=== PATIENT | male | born 1940 | race Caucasian/White ===

== ENCOUNTER 2024-12-26 13:39 | Inpatient (IN) ==
[2024-12-26 14:14] LABS: Hematocrit (blood only) 38.8 % (42.0-52.0); Hemoglobin 12.9 g/dl (14.0-18.0); Immature Granulocytes # (auto) 0.13 K/uL (0.01-0.20); Immature Granulocytes % (auto) 0.7 %; Mean Corpuscular Hemoglobin 33.2 pg (25.0-34.0); Mean Corpuscular Volume 100.0 fL (80.0-100.0); Platelet Count 396 K/uL (130-400); RDW Standard Deviation 50.7 fL (36.4-46.3); Red Blood Count 3.88 M/uL (4.70-6.10); White Blood Count 18.73 K/ul (4.8-10.8)
[2024-12-26 14:30] LABS: Alanine Aminotransferase 25.0 U/L (7-52); Albumin Globulin Ratio 0.9 (0.9-2); Alkaline Phosphatase 72.0 U/L (34-104); Anion Gap 7.0 (3-11); Bilirubin,Total 0.7 mg/dl (0.2-1.0); Blood Urea Nitrogen 13.0 mg/dl (6-23); Calcium 8.8 mg/dl (8.6-10.3); Carbon Dioxide 29.0 mmol/L (21-32); Chloride 101.0 mmol/L (98-107); Creatinine Clr Calc Pharmacy 80.1 ml/min; Globulin 3.6 gm/dl (2.5-4.0); Glucose 123.0 mg/dl (70-99(Fasting)); Magnesium 1.7 mg/dl (1.7-2.4); Potassium 3.9 mmol/L (3.5-5.1); Sodium 137.0 mmol/L (136-145); Total Protein 6.7 gm/dl (6.0-8.3)
--- NOTE | 2024-12-26 14:32 | XRay Report ---
XR chest 1V portable CLINICAL HISTORY: Dyspnea COMPARISON STUDY: 12/21/2024 FINDINGS: Stable cardiomegaly without pulmonary vascular congestion. There are mildly progressive ret icular and patchy peripheral pulmonary opacities, right lung greater than left. No pleural effusion o r pneumothorax. IMPRESSION: Mildly progressive pulmonary opacities likely represents mild acute pneumonia superimpos ed on chronic lung disease. ACT 112: Negative or not required by law. Electronically signed by: Anil Zhao M.D. 12/26/2024 2:31 PM
--- NOTE | 2024-12-26 14:48 | Emergency Department Note ---
Impression & Plan Pneumonia, Hypoxia, On apixaban therapy ED Provider Note NAME: ATILIO MENDOZA AGE: 84 SEX: M : 1940 ARRIVES VIA: Walk-In INFORMANT: Patient ED PROVIDER(S): Colten Valentino MD CHIEF COMPLAINT: Pneumonia, referred. PLAN: Disposition: Home MEDICAL DECISION MAKING: The patient is a pleasant 84-year-old gentleman with a past medical history of CHF, atrial fibrillation on Eliquis who presents to the emergency department via walk-in, accompanied by family and referred by his PCP office for persistent symptoms of shortness of breath in the setting of being diagnosed with pneumonia at urgent care and treated with Augmentin and doxycycline for the past 5 days. Patient denies fevers or chills. Denies nausea or vomiting. He reports some loose stool but this correlates with starting antibiotics. Symptoms began several weeks ago. Patient denies any chest pain, abdominal pain. On evaluation patient is no acute distress, afebrile with O2 saturation 89% on room air improving to low-mid 90s on nasal cannula. He appears clinically dry. He has scant rhonchi of bilateral lung elmore with normal respiratory effort. EKG without overt acute ischemia. CXR demonstrates vascular congestion with mildly progressed reticular and patchy peripheral pulmonary opacities suspicious for pneumonia per my personal preliminary review/interpretation. WBC 18.7 K with neutrophilia but no left shift. H/H12.9/38.8 without recent for comparison. Platelets within limits. Chemistry without metabolic acidosis. Electrolytes and Lifteez unremarkable. Lactic acid 0.9, within normal limits. High-sensitivity troponin 60.6, within normal limits. Procalcitonin is not elevated. UA without evidence of infection. Given failed outpatient management antibiotic coverage broadened with IV Zosyn at this time. MRSA swab was Obtained. Given the patient's persistent symptoms he does agree with plan for admission for further management. Case was [facility], with Dr. Villarreal [facility] hospitalist who will evaluate the patient for admission. Triage Nursing notes reviewed and agree them. Prior/external medical records reviewed Vital Signs: reviewed Differential diagnosis: Reactive airway disease, pneumonia, pneumothorax, COPD, CHF, infections, cardiac ischemia, pulmonary embolism, musculoskeletal, gastrointestinal, as well as other pathologies. ER treatment provided: See below. Diagnostics interpreted by me: ECG: Normal sinus rhythm with sinus arrhythmia, 75 bpm, no ectopy, no overt ST ovation or depression, QTc 460, QRS 144. Cardiac Monitoring: An order for continuous cardiac monitoring was placed and demonstrated normal sinus rhythm, 75 bpm, no ectopy. Laboratory studies: See below Imaging studies: See below Consultation(s): Case was discussed with NISHI Johnson PAC, with NISHI Gonzales hospitalist who will evaluate the patient for admission. HPI: Per MDM. ROS: See above HPI for pertinent positives & negatives. A total of 10 systems reviewed and were otherwise negative. VITALS:See Below PHYSICAL EXAMINATION: GENERAL: Awake, alert, fatigued-appearing, in no distress HENT: Normocephalic, atraumatic. Oropharynx with dry mucous membranes and otherwise unremarkable. EYES: Normal conjunctiva. Sclera non-icteric. NECK: Supple. No nuchal rigidity. FROM. No JVD. RESPIRATORY: Scant rhonchi of bilateral lung elmore with normal respiratory effort. CARDIAC: Regular rate, normal rhythm. Extremities warm and well perfused. Pulses equal. ABDOMEN: Soft, non-distended. No tenderness to palpation. No rebound or guarding. No masses. MUSCULOSKELETAL: Chest examination reveals no tenderness. The back is symmetrical on inspection without obvious abnormality. There is no CVA tenderness to palpation. No joint edema. LOWER EXTREMITIES: Calves are equal size bilaterally and non-tender. No edema. No discoloration. NEURO: Normal sensorium. No sensory or motor deficits noted. SKIN: No rash or jaundice noted. Colten Valentino MD Past Med/Surg History Problem List (Updated 12/27/24 @ 03:44 by Colten Valentino MD) On apixaban therapy (Acute) Hypoxia (Acute) CHF (congestive heart failure) Pneumonia (Acute) Right lumbar radiculopathy Encounter for pre-operative examination Medical History COVID-19 virus detected Hearing deficit Osteoarthritis Degenerative disc disease Atrial fibrillation Surgical History S/P epidural steroid injection History of cardioversion History of tooth extraction Hx of bilateral cataract extraction Hx of hernia repair History of carpal tunnel release History of colonoscopy History of tonsillectomy History of adenoidectomy History of appendectomy History of cholecystectomy Hx of rotator cuff surgery History of open heart surgery S/P ablation of atrial flutter History of cardiac cath Family History Mother Lung cancer Other No family history of adverse response to anesthesia Social History Smoking Status: Never smoker Second Hand Exposure: No; Do You Dip or Chew Tobacco: No; Hx Alcohol Use: Yes Alcohol type: beer and wine Hx Substance Use: No Preferred Language: Tajik Communication Ability: Effective Adjunct Instructor Required: No Beliefs That Will Affect Care: None Current Living Situation: Spouse Current Living Situation Comment: [facility] Feels Safe at Home: Yes Assistive Devices: Glasses, Hearing Aid - Bilateral, Oxygen - Continuous and Walker Allergies Allergies Allergy/AdvReac Type Severity Reaction Status Date / Time No Known Allergies Allergy Verified 12/26/24 15:11 Home Meds Home Medications Medication Instructions Recorded Confirmed apixaban 5 mg tablet (Eliquis) 5 mg PO BID 12/21/18 12/26/24 dofetilide 500 mcg capsule 500 mcg PO BID 12/21/18 12/26/24 (Tikosyn) aspirin 81 mg capsule 81 mg PO DAILY 07/11/24 12/26/24 empagliflozin 10 mg tablet 10 mg PO DAILY 07/11/24 12/26/24 (Jardiance) rosuvastatin 10 mg tablet 10 mg PO DAILY 07/11/24 12/26/24 sacubitril 49 mg-valsartan 51 mg 1 tab PO BID 07/11/24 12/26/24 tablet (Entresto) benzonatate 100 mg capsule 100 mg PO TID PRN Cough 12/26/24 12/26/24 colchicine 0.6 mg tablet 0.6 mg PO DIRECTED PRN GOUT 12/26/24 12/26/24 FLARE UP lutein 10 mg tablet 10 mg PO DAILY 12/26/24 12/26/24 Previous Rx's Medication Instructions Recorded alfuzosin 10 mg tablet,extended 10 mg PO DAILY #30 tabs 07/11/24 release 24 hr Results & Data (ED) Vital Signs Vital Signs - 24 hr 12/26/24 13:44 12/26/24 13:48 12/26/24 14:18 Temperature 36.7 C Temperature Source Skin Pulse Rate 80 75 Pulse Rate from SpO2 Sensor 77 Respiratory Rate 20 22 Respiratory Effort / Characteristics Non-Labored Spontaneous Respiratory Depth Normal Normal Respiratory Pattern Regular Regular Blood Pressure 101/65 Blood Pressure Mean 77 Pulse Oximetry 89 L 93 Oxygen Delivery Method Room Air Room Air Sepsis Recent Fever Within 48 Hours No Sepsis New/Unexplained Change in Mental Status N/A Sepsis Action Taken by Nursing No Action Required 12/26/24 14:21 12/26/24 14:30 12/26/24 14:32 Temperature Temperature Source Pulse Rate 74 85 84 Pulse Rate from SpO2 Sensor 72 84 Respiratory Rate 30 H 35 H Respiratory Effort / Characteristics Respiratory Depth Respiratory Pattern Blood Pressure Blood Pressure Mean Pulse Oximetry 94 95 Oxygen Delivery Method Sepsis Recent Fever Within 48 Hours Sepsis New/Unexplained Change in Mental Status Sepsis Action Taken by Nursing 12/26/24 14:57 12/26/24 15:00 12/26/24 15:12 Temperature Temperature Source Pulse Rate 66 75 77 Pulse Rate from SpO2 Sensor 68 73 80 Respiratory Rate 33 H 17 36 H Respiratory Effort / Characteristics Respiratory Depth Respiratory Pattern Blood Pressure Blood Pressure Mean Pulse Oximetry 98 97 94 Oxygen Delivery Method Sepsis Recent Fever Within 48 Hours Sepsis New/Unexplained Change in Mental Status Sepsis Action Taken by Nursing 12/26/24 15:24 Temperature Temperature Source Pulse Rate 83 Pulse Rate from SpO2 Sensor 82 Respiratory Rate 29 H Respiratory Effort / Characteristics Respiratory Depth Respiratory Pattern Blood Pressure 104/69 Blood Pressure Mean 80 Pulse Oximetry 96 Oxygen Delivery Method Sepsis Recent Fever Within 48 Hours Sepsis New/Unexplained Change in Mental Status Sepsis Action Taken by Nursing Laboratory Data Attestation: I reviewed the patient's lab results. 12/26/24 14:02 12/26/24 14:02 Lab Results 12/26/24 12/26/24 Range/Units 14:02 15:18 WBC 18.73 H (4.8-10.8) K/ul RBC 3.88 L (4.70-6.10) M/uL Hgb 12.9 L (14.0-18.0) g/dl Hct 38.8 L (42.0-52.0) % MCV 100.0 (80.0-100.0) fL MCH 33.2 (25.0-34.0) pg MCHC 33.2 (32.0-36.0) g/dL RDW Std Deviation 50.7 H (36.4-46.3) fL RDW Coeff of Dayron 13.9 (11.5-14.5) % Plt Count 396 (130-400) K/uL MPV 9.9 (9.4-12.4) fL Immature Gran % (Auto) 0.7 % Neut % (Auto) 85.0 % Lymph % (Auto) 4.6 % Porter % (Auto) 8.5 % Eos % (Auto) 0.7 % Baso % (Auto) 0.5 % Neut # (Auto) 15.91 H (1.40-6.50) K/uL Lymph # (Auto) 0.86 L (1.20-3.40) K/uL Porter # (Auto) 1.59 H (0.11-0.59) K/uL Eos # (Auto) 0.14 (0.00-0.50) K/uL Baso # (Auto) 0.10 (0.00-0.20) K/uL Immature Gran # (Auto) 0.13 (0.01-0.20) K/uL Sodium 137 (136-145) mmol/L Potassium 3.9 (3.5-5.1) mmol/L Chloride 101 (98-107) mmol/L Carbon Dioxide 29 (21-32) mmol/L Anion Gap 7 (3-11) BUN 13 (6-23) mg/dl Creatinine 0.63 (0.6-1.4) mg/dl Est Cr Clr Drug Dosing 80.1 ml/min eGFR 93.21 BUN/Creatinine Ratio 20.6 H (10-20) Glucose 123 H (70-99(Fasting)) mg/dl Lactate 0.9 (0.4-2.0) mmol/L Calcium 8.8 (8.6-10.3) mg/dl Magnesium 1.7 (1.7-2.4) mg/dl Total Bilirubin 0.7 (0.2-1.0) mg/dl AST 26 (13-39) U/L ALT 25 (7-52) U/L Alkaline Phosphatase 72 (34-104) U/L Troponin I High Sens 16.6 (0-20) pg/ml Total Protein 6.7 (6.0-8.3) gm/dl Albumin 3.1 L (3.4-5.0) gm/dl Globulin 3.6 (2.5-4.0) gm/dl Albumin/Globulin Ratio 0.9 (0.9-2) Procalcitonin 0.06 (0-0.5) ng/ml Administered Medications Albuterol (Albut/Ipratrop 3mg/0.5mg Neb 3 Ml Vial) 3 ml NEB QIDR ABIODUN; Protocol Stop: 01/25/25 15:34 Last Admin: 12/26/24 19:19 Dose: 3 ml Documented By: [id number] Admin: 12/26/24 15:35 Dose: 3 ml Documented By: KAMILLA Apixaban (Apixaban 5 Mg Tablet) 5 mg PO BID [facility] Stop: 01/25/25 20:59 Last Admin: 12/26/24 20:07 Dose: 5 mg Documented By: APRIL Dofetilide (Dofetilide 125 Mcg Capsule) 500 mcg PO BID@0700,1900 [facility] Stop: 01/25/25 18:59 Last Admin: 12/26/24 20:00 Dose: 500 mcg Documented By: APRIL Guaifenesin (Guaifenesin 600 Mg Tabcr) 600 mg PO Q12 ABIODUN Stop: 01/25/25 20:59 Last Admin: 12/26/24 20:52 Dose: 600 mg Documented By: APRIL Levofloxacin/Dextrose (Levaquin/D5w) 750 mg in 150 mls @ 100 mls/hr IV Q24H [facility]; Protocol Stop: 12/31/24 16:29 Last Infusion: 12/26/24 18:48 Dose: Infused Documented By: Admin: 12/26/24 17:18 Dose: 100 mls/hr Documented By: LUCIANO Methylprednisolone 40 mg/ (Syringe) 0.64 mls @ 1.5 mls/min IV Q8H ABIODUN Stop: 01/25/25 16:59 Last Admin: 12/27/24 00:17 Dose: 1.5 mls/min Documented By: Admin: 12/26/24 17:51 Dose: 1.5 mls/min Documented By: LUCIANO Piperacillin Sod/Tazobactam Sod (Zosyn) 4.5 gm in 100 mls @ 25 mls/hr IV Q8H [facility]; Protocol Stop: 12/31/24 19:59 Last Infusion: 12/27/24 00:08 Dose: Infused Documented By: Admin: 12/26/24 20:01 Dose: 25 mls/hr Documented By: APRIL Menthol (Cough Drop (Sugar Free) Maxime 24 Maxime/1 Box) 1 maxime BUCCAL Q2H PRN PRN Reason: Sore Throat Stop: 01/25/25 23:34 Last Admin: 12/27/24 00:17 Dose: 1 maxime Documented By: APRIL Discontinued Medications Piperacillin Sod/Tazobactam Sod (Zosyn) 4.5 gm in 100 mls @ 200 mls/hr IV NOW ONE; Protocol Stop: 12/26/24 15:28 Last Infusion: 12/26/24 15:50 Dose: Infused Documented By: Admin: 12/26/24 15:18 Dose: 200 mls/hr Documented By: KAMILLA Imaging Data Radiologist's Impression: Chest X-Ray 12/26/24 13:49 XR chest 1V portable CLINICAL HISTORY: Dyspnea COMPARISON STUDY: 12/21/2024 FINDINGS: Stable cardiomegaly without pulmonary vascular congestion. There are mildly progressive reticular and patchy peripheral pulmonary opacities, right lung greater than left. No pleural effusion or pneumothorax. IMPRESSION: Mildly progressive pulmonary opacities likely represents mild acute pneumonia superimposed on chronic lung disease. ACT 112: Negative or not required by law. Electronically signed by: Anil Zhao M.D. 12/26/2024 2:31 PM Discharge Plan Visit Data Chief Complaint: Shortness of Breath/Dyspnea Stated Complaint: SOB, PNEUMONIA, DOC REFFERAL ED Provider: Colten Valentino Discharge Problem: Pneumonia, Hypoxia, On apixaban therapy Patient Disposition: Admitted As Inpatient Condition: Fair Discharge Instructions Interventions: ED Discharge Assessment Last Done: 12/26/24 16:16 Discharge Problem: Pneumonia Qualifiers: Pneumonia type: due to unspecified organism Laterality: bilateral Lung location: unspecified part of lung Qualified Code(s): J18.9 - Pneumonia, unspecified organism
[2024-12-26] MEDS: PIPERACILLIN/TAZOBACTAM 4.5 GM/100 ML BAG IV ONE (15:18)
[2024-12-26] MEDS ORDERED: ACETAMINOPHEN 325 MG TAB PO PRN (15:29)
[2024-12-26] MEDS: ALBUT/IPRATROP 3MG/0.5MG NEB 3 ML VIAL NEB SCH (15:35)
--- NOTE | 2024-12-26 15:42 | History & Physical Report ---
Date of Service December 26, 2024 Assessment & Plan (1) Pneumonia: (2) CHF (congestive heart failure): (3) Atrial fibrillation: Plan This is an 84 year old gentleman with past medical history of HF, A fib, tricuspid regurgitation who presented to the ED on 12/26/2024 for ongoing cough and shortness of breath. While in the ED he was found to have leukocytosis of 18.73 w/ neutrophil predominance. His BMP was stable. Procalcitonin negative. Lactate WNL. CXR showing pneumonia superimposed on chronic lung disease. He was given 1 dose of IV Zosyn. #Pneumonia Failed outpatient treatment w/ 5 day course of Doxycycline + Augmentin. Reports no fevers but ongoing cough. CXR: pneumonia superimposed on chronic lung disease CBC w/ leukocytosis of 18.73 w/ neutrophil predominance. CMP stable Procal & lactate both negative @ time of admission. Sputum & blood cultures pending s/p IV Zosyn in ED --> continue upon admission. Duonebs q 6h Mucinex BID Oxygen use prn to maintain sPO2 >90% Tylenol prn for fever/pain PT/OT consulted for ongoing weakness #CHF Follows routinely w/ [facility] Cardiology outpatient, was recently seen Hold Entresto given mildly low BPs - 104/69 on admission. Continue Jardiance, ASA, Statin #A fib Rate controlled at time of admission Continue Dofetilide and Eliquis DVT prophylaxis: Eliquis Code: full Updated & daughter @ bedside 12/26 Case discussed w/ Dr. Villarreal at time of admission. History of Present Illness Primary Care Provider: Yvon Ramos MD This is an 84 year old gentleman with past medical history of HF, A fib, tricuspid regurgitation who presented to the ED on 12/26/2024 for ongoing cough and shortness of breath. Lex was seen and examined this afternoon with his & daughter at bedside. He reports he has been having ongoing flu like symptoms for ~ 3 weeks now. He was recently seen in the [facility] & was given 5 days of Augmentin and doxycycline which he completed yesterday. The daughter reports he is worse than previous but the patient states he feels about the same. His biggest symptom is his cough which is happening throughout the day and overnight. He is able to cough up mucus occasionally and states it is white in color. He does get SOB if he has a coughing fit as well. Lying down worsens his cough as well. He denies any fevers or chills. Reports decreased appetite secondary to not feeling well. He reports he is not on oxygen at home. He denied CP. He denied abdominal pain, nausea, vomiting. Reports looser bowels since starting the antibiotics. Denies any urinary urgency/frequency/hematuria. He routinely follows w/ [facility] & PCP. While in the ED he was found to have leukocytosis of 18.73 w/ neutrophil predominance. His BMP was stable. Procalcitonin negative. Lactate WNL. CXR showing pneumonia superimposed on chronic lung disease. He was given 1 dose of IV Zosyn. Code discussion did take place and he does confirm he is a full code. Allergies Allergy/AdvReac Type Severity Reaction Status Date / Time No Known Allergies Allergy Verified 12/26/24 15:11 Home Medications Medication Instructions Recorded Confirmed Type apixaban 5 mg tablet (Eliquis) 5 mg PO BID 12/21/18 12/26/24 History dofetilide 500 mcg capsule 500 mcg PO BID 12/21/18 12/26/24 History (Tikosyn) alfuzosin 10 mg tablet,extended 10 mg PO DAILY #30 tabs 07/11/24 12/26/24 Rx release 24 hr aspirin 81 mg capsule 81 mg PO DAILY 07/11/24 12/26/24 History empagliflozin 10 mg tablet 10 mg PO DAILY 07/11/24 12/26/24 History (Jardiance) rosuvastatin 10 mg tablet 10 mg PO DAILY 07/11/24 12/26/24 History sacubitril 49 mg-valsartan 51 mg 1 tab PO BID 07/11/24 12/26/24 History tablet (Entresto) benzonatate 100 mg capsule 100 mg PO TID PRN Cough 12/26/24 12/26/24 History colchicine 0.6 mg tablet 0.6 mg PO DIRECTED PRN GOUT 12/26/24 12/26/24 History FLARE UP lutein 10 mg tablet 10 mg PO DAILY 12/26/24 12/26/24 History Past Med/Surg History Problem List (Updated 12/26/24 @ 15:54 by Steffany Goddard PA-C) CHF (congestive heart failure) Pneumonia Right lumbar radiculopathy Encounter for pre-operative examination Medical History COVID-19 virus detected Hearing deficit Osteoarthritis Degenerative disc disease Atrial fibrillation Surgical History S/P epidural steroid injection History of cardioversion History of tooth extraction Hx of bilateral cataract extraction Hx of hernia repair History of carpal tunnel release History of colonoscopy History of tonsillectomy History of adenoidectomy History of appendectomy History of cholecystectomy Hx of rotator cuff surgery History of open heart surgery S/P ablation of atrial flutter History of cardiac cath Family History Mother Lung cancer Other No family history of adverse response to anesthesia Social History Smoking Status: Never smoker Second Hand Exposure: No; Do You Dip or Chew Tobacco: No; Hx Alcohol Use: Yes Alcohol type: beer and wine Hx Substance Use: No Preferred Language: Norwegian Communication Ability: Effective Hvac Journeyman Required: No Beliefs That Will Affect Care: None Current Living Situation: Spouse Feels Safe at Home: Yes Assistive Devices: Glasses and Hearing Aid - Bilateral Physical Exam Constitutional: WD/WN, vitals as above Eyes: PERRL, conjunctivae normal, anicteric sclerae Respiratory: normal respiratory effort Auscultation: + diminished lung sounds and + crackles Cardiovascular: RRR, no murmur, no edema Musculoskeletal: no cyanosis or clubbing, extremities motor strength 5/5 Skin: no rashes, warm and dry Neurologic: PERRL, EOMI, accommodation nl, no face palsy, no dysarthria Psychiatric: A+Ox3, euthymic affect Results & Data Results & Data Vital Signs (Past 12 Hours) Vital Signs Temp Pulse Resp BP Pulse Ox O2 Del Method 12/26/24 15:24 83 29 H 104/69 96 12/26/24 15:12 77 36 H 94 12/26/24 15:00 75 17 97 12/26/24 14:57 66 33 H 98 12/26/24 14:32 84 12/26/24 14:30 85 35 H 95 12/26/24 14:21 74 30 H 94 12/26/24 14:18 75 22 93 12/26/24 13:48 Room Air 12/26/24 13:44 36.7 C 80 20 101/65 89 L Room Air Supervising Physician Co-Signing Physician Notes The patient was not seen by me. The chart was reviewed. Case discussed with JESSICA Johnson. Agree with assessment and plan PG Care Time/CCT Total # of Minutes Spent Total Time Spent with Patient: Total time spent is greater than 50% in coordination of care (as documented) at patient's floor/unit and/or counseling patient: Coding Level of Care Code 41922 INT INP/OBS CARE MIN Diagnoses Pneumonia J18.9 CHF (congestive heart failure) I50.9 Atrial fibrillation I48.91
[2024-12-26 16:39] LABS: Appearance Urine Clear (Clear); Bacteria Urine Automated None Seen (None Seen); Cast Urine Automated 0-2 /lpf (0-2); Epithelial Cell Urine Auto 0-2 /hpf (0-2); Glucose Urine UA Negative (Negative); RBC Urine Automated 0-2 /hpf (0-2); WBC Urine Automated 0-5 /hpf (0-5)
[2024-12-26] MEDS ORDERED: methylPREDNISolone 10 mg/mL (For Ped Dose < 7mg) IV SCH (17:00)
[2024-12-26] MEDS ORDERED: BENZONATATE 100 MG CAPSULE PO PRN (17:17)
[2024-12-26] MEDS ORDERED: Nursing to Pharmacy Communication SCH (17:45)
[2024-12-26] MEDS: DOFETILIDE 125 MCG CAPSULE PO SCH (20:00)
[2024-12-26] MEDS: PIPERACILLIN/TAZOBACTAM 4.5 GM/100 ML BAG IV SCH (20:01)
[2024-12-26] MEDS: APIXABAN 5 MG TABLET PO SCH (20:07)
[2024-12-26] MEDS: guaiFENesin 600 MG TABCR PO SCH (20:52)
[2024-12-26] MEDS ORDERED: DOFETILIDE 125 MCG CAPSULE PO SCH (21:00)
[2024-12-27] MEDS: COUGH DROP (SUGAR FREE) LOZ 24 LOZ/1 BOX BUCCAL PRN (00:17)
[2024-12-27 06:48] LABS: Hematocrit (blood only) 37.9 % (42.0-52.0); Hemoglobin 12.5 g/dl (14.0-18.0); Mean Corpuscular Hemoglobin 32.6 pg (25.0-34.0); Mean Corpuscular Volume 98.7 fL (80.0-100.0); Platelet Count 409 K/uL (130-400); RDW Standard Deviation 47.9 fL (36.4-46.3); Red Blood Count 3.84 M/uL (4.70-6.10); White Blood Count 9.30 K/ul (4.8-10.8)
[2024-12-27 07:20] LABS: Anion Gap 6.0 (3-11); Blood Urea Nitrogen 13.0 mg/dl (6-23); Calcium 8.6 mg/dl (8.6-10.3); Carbon Dioxide 28.0 mmol/L (21-32); Chloride 104.0 mmol/L (98-107); Creatinine Clr Calc Pharmacy 90.9 ml/min; Glucose 166.0 mg/dl (70-99(Fasting)); Potassium 3.8 mmol/L (3.5-5.1); Sodium 138.0 mmol/L (136-145)
[2024-12-27 07:35] LABS: Immature Granulocytes # (auto) 0.05 K/uL (0.01-0.20); Immature Granulocytes % (auto) 0.5 %
[2024-12-27] MEDS: ASPIRIN 81 MG ECTAB PO SCH (08:30)
[2024-12-27] MEDS: ROSUVASTATIN CALCIUM 10 MG TAB PO SCH (08:30)
[2024-12-27] MEDS: EMPAGLIFLOZIN 10 MG TAB PO SCH (08:30)
--- NOTE | 2024-12-27 12:36 | Hospitalist Progress Note ---
Date of Service December 27, 2024 Assessment & Plan (1) Pneumonia: (2) CHF (congestive heart failure): (3) Atrial fibrillation: Plan This is an 84 year old gentleman with past medical history of HF, A fib, tricuspid regurgitation who presented to the ED on 12/26/2024 for ongoing cough and shortness of breath. While in the ED he was found to have leukocytosis of 18.73 w/ neutrophil predominance. His BMP was stable. Procalcitonin negative. Lactate WNL. CXR showing pneumonia superimposed on chronic lung disease. He was given 1 dose of IV Zosyn. #Pneumonia Failed outpatient treatment w/ 5 day course of Doxycycline + Augmentin. Reports no fevers but ongoing cough. CXR: pneumonia superimposed on chronic lung disease Chest CT: multifocal ground glass opacities & subpleural foci of consolidation w/ interlobular septal thickening. findings favor multifocal pneumonia. pulmonary edema less likely. No cavitation. no central obstructing lesions. tract b/l pleural effusions. moderate cardiomegaly. CBC w/ resolution of leukocytosis (WBC 9.30); BMP stable Procal & lactate both negative @ time of admission. Sputum culture contaminated - given lack of mucus production now + feeling improvement of symptoms defer re-collection BC negative at 24 hours. Continue Zosyn, added Azithromycin. QT< 500, repeat EKG in AM given Azithro/Dofetilide combo. s/p 1 dose of Levaquin. Mucinex BID scheduled Solu-Medrol IV 40mg BID Duonebs q 6h prn Oxygen use prn to maintain sPO2 >90%. weaned down to 1L currently. May require 2 step prior to returning home. Tylenol prn for fever/pain PT/OT consulted for ongoing weakness --> recommending return to [facility] w/ home health therapy. #Chronic diastolic CHF Follows routinely w/ [facility] Cardiology outpatient, was recently seen [facility] given mildly low BPs - 104/69 on admission. Continue Jardiance, ASA, Statin #A fib Rate controlled at time of admission Continue Dofetilide and Eliquis DVT prophylaxis: Eliquis Code: full Admission and Anticipated Discharge Date Admission Date: December 26, 2024 Supervising Physician Co-Signing Physician Notes Attending Attestation - Chart reviewed, care plan d/w JESSICA Goddard. I agree with the morrow components of her documentation. Chest CT reviewed. b/l groundglass opacities, some subpleural consolidation, and interlobular septal thickening. Check COVID/flu/RSV. Consider dose of IV lasix in the event there is a component of pulmonary edema. Consider echo. Dash Burnett seen and examined this morning. He reports he is feeling better today. He thinks his cough is better. Reports he had some mucus production last night but none today thus far. Denies SOB or CP. Physical Exam Constitutional: WD/WN, vitals as above Eyes: PERRL, conjunctivae normal, anicteric sclerae Respiratory: crackles at bases b/l. improved from 12/27 Chest (Breasts): normal inspection/palpation of breasts Neurologic: PERRL, EOMI, accommodation nl, no face palsy, no dysarthria Psychiatric: A+Ox3, euthymic affect Results & Data Results & Data Vital Signs (Past 12 Hours) Vital Signs Temp Pulse Pulse Resp BP Pulse Ox O2 Del Method 12/27/24 12:30 95 Nasal Cannula 12/27/24 12:18 36.5 C 83 24 120/57 L 90 Nasal Cannula 12/27/24 08:30 Nasal Cannula 12/27/24 08:02 36.3 C L 96 H 24 129/64 91 Nasal Cannula 12/27/24 07:17 85 17 91 Nasal Cannula 12/27/24 06:45 71 12/27/24 04:22 36.9 C 79 18 122/50 L 91 Nasal Cannula O2 Flow Rate 12/27/24 12:30 2 12/27/24 12:18 12/27/24 08:30 2 12/27/24 08:02 12/27/24 07:17 2 12/27/24 06:45 12/27/24 04:22 23 PG Care Time/CCT Total # of Minutes Spent Total Time Spent with Patient: Total time spent is greater than 50% in coordination of care (as documented) at patient's floor/unit and/or counseling patient: Coding Level of Care Code 09535 SUB INP/OBS CARE 2/35MIN Diagnoses Pneumonia J18.9 Laterality: bilateral Lung location: unspecified part of lung Pneumonia type: due to unspecified organism CHF (congestive heart failure) I50.9 Atrial fibrillation I48.91 (1) Pneumonia Laterality: bilateral Lung location: unspecified part of lung Pneumonia type: due to unspecified organism Qualified Code(s): J18.9 - Pneumonia, unspecified organism
--- NOTE | 2024-12-27 15:04 | CT Scan Report ---
CT OF THE CHEST WITHOUT IV CONTRAST CLINICAL HISTORY: Hypoxia. Pneumonia. COMPARISON STUDY: Chest radiographs December 21, 2024 and December 26, 2024. CT DOSE: 554.61 mGy.cm TECHNIQUE: Axial images of the chest were obtained without IV contrast. Images were reviewed in the axial, sagittal, and coronal planes. IV contrast was not administered for this examination. Automat ed exposure control was utilized for the study. A dose lowering technique was utilized adhering to t he principles of ALARA. FINDINGS: No enlarged axillary, mediastinal or hilar lymph nodes are present. The heart is moderatel y enlarged. There is no pericardial effusion. There is no pneumothorax. There are trace bilateral ple ural effusions. Lungs are suboptimally assessed due to respiratory motion. Multifocal ground glass op acities and subpleural foci of consolidation within the lungs are present. Interlobular septal thicke power is present. No central obstructing mass is noted. There is no cavitation. No definite pulmonary nodules are identified. There is no bronchiectasis or honeycombing. Visualized portions of the upper abdomen are unremarkable on unenhanced exam. IMPRESSION: 1. Multifocal groundglass opacities and subpleural foci of consolidation with interlobular septal thi ckening. The findings favor multifocal pneumonia. Pulmonary edema is considered less likely. No cavit ation. No central obstructing lesions. Mild motion artifact. 2. Trace bilateral pleural effusions. 3. Moderate cardiomegaly. ACT 112: Negative or not required by law. Electronically signed by: Efrem Vásquez M.D. 12/27/2024 3:03 PM
[2024-12-27] MEDS: AZITHROMYCIN 250 MG TAB PO ONE (16:54)
[2024-12-27 17:12] LABS: Influenza A virus by PCR Negative (Neg); Influenza B virus by PCR Negative (Neg); SARS CoV2 RNA(COVID-19) Ceph NEGATIVE (Negative)
[2024-12-27] MEDS: MELATONIN 3 MG TAB PO PRN (20:20)
[2024-12-27] MEDS: ALBUT/IPRATROP 3MG/0.5MG NEB 3 ML VIAL NEB PRN (22:24)
[2024-12-28 06:25] LABS: Hematocrit (blood only) 37.8 % (42.0-52.0); Hemoglobin 12.7 g/dl (14.0-18.0); Immature Granulocytes # (auto) 0.14 K/uL (0.01-0.20); Immature Granulocytes % (auto) 0.7 %; Mean Corpuscular Hemoglobin 33.1 pg (25.0-34.0); Mean Corpuscular Volume 98.4 fL (80.0-100.0); Platelet Count 434 K/uL (130-400); RDW Standard Deviation 50.5 fL (36.4-46.3); Red Blood Count 3.84 M/uL (4.70-6.10); White Blood Count 18.73 K/ul (4.8-10.8)
[2024-12-28 07:30] LABS: Anion Gap 7.0 (3-11); Blood Urea Nitrogen 16.0 mg/dl (6-23); Calcium 8.9 mg/dl (8.6-10.3); Carbon Dioxide 29.0 mmol/L (21-32); Chloride 104.0 mmol/L (98-107); Creatinine Clr Calc Pharmacy 84.1 ml/min; Glucose 159.0 mg/dl (70-99(Fasting)); Potassium 3.7 mmol/L (3.5-5.1); Sodium 140.0 mmol/L (136-145)
[2024-12-28] MEDS: AZITHROMYCIN 250 MG TAB PO SCH (08:32)
--- NOTE | 2024-12-28 12:33 | Hospitalist Progress Note ---
Date of Service December 28, 2024 Assessment & Plan (1) Pneumonia: (2) CHF (congestive heart failure): (3) Atrial fibrillation: Plan This is an 84 year old gentleman with past medical history of HF, A fib, tricuspid regurgitation who presented to the ED on 12/26/2024 for ongoing cough and shortness of breath. While in the ED he was found to have leukocytosis of 18.73 w/ neutrophil predominance. His BMP was stable. Procalcitonin negative. Lactate WNL. CXR showing pneumonia superimposed on chronic lung disease. He was given 1 dose of IV Zosyn. #Pneumonia Failed outpatient treatment w/ 5 day course of Doxycycline + Augmentin. Reports no fevers but ongoing cough. CXR: pneumonia superimposed on chronic lung disease Chest CT: multifocal ground glass opacities & subpleural foci of consolidation w/ interlobular septal thickening. findings favor multifocal pneumonia. pulmonary edema less likely. No cavitation. no central obstructing lesions. tract b/l pleural effusions. moderate cardiomegaly. CBC w/ bump of WBC back to 18 although suspect this is secondary to corticosteroids given patient improvement; BMP stable Procal & lactate both negative @ time of admission. Sputum culture contaminated - given lack of mucus production now + feeling improvement of symptoms defer re-collection BC negative at 24 hours. Continue Zosyn, added Azithromycin. QT< 500, repeat EKG in AM given Azithro/Dofetilide combo. s/p 1 dose of Levaquin. Mucinex BID scheduled Solu-Medrol IV 40mg daily DuoNebs q 6h prn Robitussin 5ml PO q6h prn. Oxygen use prn to maintain sPO2 >90%. weaned down to 1L currently. --> attempt to wean this afternoon to room air, if unable will order 2 step Tylenol prn for fever/pain PT/OT consulted for ongoing weakness --> recommending return to [facility] w/ home health therapy. #Chronic diastolic CHF Follows routinely w/ [facility] Cardiology outpatient, was recently seen [facility] Entresto given mildly low BPs Continue Jardiance, ASA, Statin #A fib Rate controlled at time of admission Continue Dofetilide and Eliquis DVT prophylaxis: Eliquis Code: full hopeful for discharge to home w/ home health 12/29. Admission and Anticipated Discharge Date Admission Date: December 26, 2024 Kimberley Burnett seen and examined this morning with family at bedside. He reports he is feeling about the same. He states that his main issue is he gets a coughing fit around 9pm that persists throughout the night. States in the past he has tried cough syrup w/ codeine in it that is effective. Denies any SOB or CP. Physical Exam Constitutional: WD/WN, vitals as above Eyes: PERRL, conjunctivae normal, anicteric sclerae Respiratory: lungs now clear to auscultation Cardiovascular: RRR, no murmur, no edema Skin: no rashes, warm and dry Neurologic: PERRL, EOMI, accommodation nl, no face palsy, no dysarthria Psychiatric: A+Ox3, euthymic affect Results & Data Results & Data Vital Signs (Past 12 Hours) Vital Signs Temp Pulse Pulse Resp BP BP Pulse Ox 12/28/24 12:20 36.4 C L 77 24 106/62 90 12/28/24 08:49 76 12/28/24 08:49 12/28/24 08:01 36.5 C 77 24 113/61 96 12/28/24 03:40 36.4 C L 83 20 125/67 97 O2 Del Method O2 Flow Rate 12/28/24 12:20 Nasal Cannula 12/28/24 08:49 12/28/24 08:49 Nasal Cannula 3 12/28/24 08:01 Nasal Cannula 12/28/24 03:40 Nasal Cannula 1 PG Care Time/CCT Total # of Minutes Spent Total Time Spent with Patient: Total time spent is greater than 50% in coordination of care (as documented) at patient's floor/unit and/or counseling patient: Coding Level of Care Code 75775 SUB INP/OBS CARE 2/35MIN Diagnoses Pneumonia J18.9 Laterality: bilateral Lung location: unspecified part of lung Pneumonia type: due to unspecified organism CHF (congestive heart failure) I50.9 Atrial fibrillation I48.91 (1) Pneumonia Laterality: bilateral Lung location: unspecified part of lung Pneumonia type: due to unspecified organism Qualified Code(s): J18.9 - Pneumonia, unspecified organism
[2024-12-29 06:58] LABS: Hematocrit (blood only) 40.5 % (42.0-52.0); Hemoglobin 13.1 g/dl (14.0-18.0); Immature Granulocytes # (auto) 0.10 K/uL (0.01-0.20); Immature Granulocytes % (auto) 0.7 %; Mean Corpuscular Hemoglobin 32.8 pg (25.0-34.0); Mean Corpuscular Volume 101.5 fL (80.0-100.0); Platelet Count 481 K/uL (130-400); RDW Standard Deviation 52.4 fL (36.4-46.3); Red Blood Count 3.99 M/uL (4.70-6.10); White Blood Count 14.42 K/ul (4.8-10.8)
[2024-12-29 07:25] LABS: Anion Gap 4.0 (3-11); Blood Urea Nitrogen 28.0 mg/dl (6-23); Calcium 8.7 mg/dl (8.6-10.3); Carbon Dioxide 32.0 mmol/L (21-32); Chloride 103.0 mmol/L (98-107); Creatinine Clr Calc Pharmacy 64.5 ml/min; Glucose 122.0 mg/dl (70-99(Fasting)); Potassium 3.8 mmol/L (3.5-5.1); Sodium 139.0 mmol/L (136-145)
[2024-12-29 08:10] VITALS: TEMP 97.7
[2024-12-29 11:04] VITALS: PULSE 56; RESP 17; O2SAT 93
--- NOTE | 2024-12-29 11:15 | Discharge Summary ---
Discharge Summary Date of Service December 29, 2024 Principal Dx & Hospital Course #1 = Principal Diagnosis (1) Pneumonia: (2) CHF (congestive heart failure): (3) Atrial fibrillation: Plan This is an 84 year old gentleman with past medical history of HF, A fib, tricuspid regurgitation who presented to the ED on 12/26/2024 for ongoing cough and shortness of breath. While in the ED he was found to have leukocytosis of 18.73 w/ neutrophil predominance. His BMP was stable. Procalcitonin negative. Lactate WNL. CXR showing pneumonia superimposed on chronic lung disease. He was given 1 dose of IV Zosyn. #Pneumonia Failed outpatient treatment w/ 5 day course of Doxycycline + Augmentin. Reports no fevers but ongoing cough. CXR: pneumonia superimposed on chronic lung disease Chest CT: multifocal ground glass opacities & subpleural foci of consolidation w/ interlobular septal thickening. findings favor multifocal pneumonia. pulmonary edema less likely. No cavitation. no central obstructing lesions. tra ct b/l pleural effusions. moderate cardiomegaly. CBC w/ downtrending leukocytosis. BMP stable. Procal & lactate both negative @ time of admission. Sputum culture contaminated - given lack of mucus production now + feeling improvement of symptoms defer re-collection BC negative at 48 hours. s/p Zosyn, Levquin & Azithromycin --> discharged home w/ 2 additional days of azithromycin + 5 days of Augmentin s/p Solu-medrol, discharged on prednisone taper. Robitussin 5ml PO q6h prn. PT/OT consulted for ongoing weakness --> return to prior living arrangement 2 step completed --> requires 2 L w/ ambulation. #Chronic diastolic CHF Follows routinely w/ [facility] outpatient, was recently seen Resume Johanna on discharge Continue Jardiance, ASA, Statin #A fib Rate controlled at time of admission Continue Dofetilide and Eliquis Discharged back to [facility] 12/29. Admission HPI Per Admitting Provider This is an 84 year old gentleman with past medical history of HF, A fib, tricuspid regurgitation who presented to the ED on 12/26/2024 for ongoing cough and shortness of breath. Lex was seen and examined this afternoon with his & daughter at bedside. He reports he has been having ongoing flu like symptoms for ~ 3 weeks now. He was recently seen in the [facility] clinic & was given 5 days of Augmentin and doxycycline which he completed yesterday. The daughter reports he is worse than previous but the patient states he feels about the same. His biggest symptom is his cough which is happening throughout the day and overnight. He is able to cough up mucus occasionally and states it is white in color. He does get SOB if he has a coughing fit as well. Lying down worsens his cough as well. He denies any fevers or chills. Reports decreased appetite secondary to not feeling well. He reports he is not on oxygen at home. He denied CP. He denied abdominal pain, nausea, vomiting. Reports looser bowels since starting the antibiotics. Denies any urinary urgency/frequency/hematuria. He routinely follows w/ [facility] & PCP. While in the ED he was found to have leukocytosis of 18.73 w/ neutrophil predominance. His BMP was stable. Procalcitonin negative. Lactate WNL. CXR showing pneumonia superimposed on chronic lung disease. He was given 1 dose of IV Zosyn. Code discussion did take place and he does confirm he is a full code. Discharge Exam Constitutional WD/WN, vitals as above Eyes PERRL, conjunctivae normal, anicteric sclerae Respiratory clear to auscultation Cardiovascular RRR, no murmur, no edema Neurologic PERRL, EOMI, accommodation nl, no face palsy, no dysarthria Psychiatric A+Ox3, euthymic affect Discharge Plan Discharge Items Patient Disposition: Home - Self-Care Reason For Visit: COUGH, PNEUMONIA Discharge Diagnosis: Pneumonia Condition on Discharge: Fair Activity: Resume your previous activity Non-emergency contact: Primary Care Provider Call non-emergency contact if: you have any medication questions and your symptoms worsen Follow-up/Referrals: Yvon Ramos MD [Primary Care Provider] - 01/09/25 2:25 pm Diet: Heart Healthy Addtl Attending Provider Instructions: Mr. Casper, You were recently hospitalized for an ongoing cough & were found to have pneumonia. You were treated with antibiotics and steroids with improvement of your symptoms. Please see recommendations below regarding your discharge. Please take Azithromycin once daily for two more days. Your first dose at home will be on 12/30 in the AM. Please take Augmentin twice daily for five more days. Your first dose at home will be this evening, 7/24. You may take your antibiotics with food to avoid GI upset. Please take your prednisone taper as prescribed. This will start tomorrow, 12/30 in the AM. Please use 2L of oxygen while ambulating. Please use Robitussin 5ml PO every 6 hours as needed for cough. Please resume the remainder of your outpatient medications unless stated otherwise below. Please follow up with your PCP within 1-2 weeks of discharge. Best of luck! Steffany Goddard PA-C Pending Studies at Discharge: No Stand-Alone Forms: [facility] [employer], Smoking Cessation Medications and DC Order Prescriptions: New azithromycin 250 mg Tablet 250 mg PO QAM Qty: 2 0RF codeine-guaifenesin [Guaifenesin AC] 10-100 mg/5 mL Liquid 5 ml PO Q6H PRN (Reason: cough) Qty: 118 0RF amoxicillin-pot clavulanate 875-125 mg tablet 1 tab PO BID Qty: 10 0RF prednisone 10 mg tablet 10 mg PO DIRECTED Qty: 16 0RF Rx Instructions: Please take 4 tablets by mouth for 1 day followed by 3 tablets by mouth for 2 days followed by 2 tablets by mouth for 2 days followed by 1 tablet by mouth for 2 days. Continued sacubitril-valsartan [Entresto] 49-51 mg tablet 1 tab PO BID Jardiance 10 mg tablet 10 mg PO DAILY rosuvastatin 10 mg tablet 10 mg PO DAILY aspirin 81 mg capsule 81 mg PO DAILY alfuzosin 10 mg tablet extended release 24 hr 10 mg PO DAILY Qty: 30 2RF Rx Instructions: PER PT "NEVER STARTED THIS MEDICATION". administer after the same meal each day dofetilide [Tikosyn] 500 mcg Capsule 500 mcg PO BID Eliquis 5 mg Tablet 5 mg PO BID lutein 10 mg Tablet 10 mg PO DAILY Rx Instructions: give with meal/snack benzonatate 100 mg capsule 100 mg PO TID PRN (Reason: Cough) colchicine 0.6 mg tablet 0.6 mg PO DIRECTED PRN (Reason: GOUT FLARE UP) Discharge Orders: Discharge Order (Routine); Ordered 12/29/24 Ordered By: Steffany Stubbs/Other Patient Handouts: When You Have Pneumonia, Using an Oxygen Tank at Home Admission Data Admit Date/Time: 12/26/24 15:29 Attending Provider: Joanie Cope Admit Provider: Eric Villarreal Primary Care Provider: Yvon Ramos Other Providers: Eric Villarreal Hospital Stay Data Consultations 12/26/24 14:59 ED Decision to Admit Stat Diagnostic Imagining Performed 12/27/24 11:14 CT chest without contrast [CT chest diagnostic wo con] Routine Pending Results Patient Have Any Pending Studies at Discharge: No Discharge Instructions Given to Patient (Per Discharging Provider) Mr. Casper, J Carlos were recently hospitalized for an ongoing cough & were found to have pneumonia. You were treated with antibiotics and steroids with improvement of your symptoms. Please see recommendations below regarding your discharge. Please take Azithromycin once daily for two more days. Your first dose at home will be on 12/30 in the AM. Please take Augmentin twice daily for five more days. Your first dose at home will be this evening, 12/29. You may take your antibiotics with food to avoid GI upset. Please take your prednisone taper as prescribed. This will start tomorrow, 12/30 in the AM. Please use 2L of oxygen while ambulating. Please use Robitussin 5ml PO every 6 hours as needed for cough. Please resume the remainder of your outpatient medications unless stated otherwise below. Please follow up with your PCP within 1-2 weeks of discharge. Best of luck! Steffany Goddard PA-C Total Time Total Time Spent Total Time Spent (In Minutes): 45 Total Time Includes: Examination of the Patient, Discharge Planning and Medication Reconciliation Coding Level of Care Code 48579 INP/OBS DISCH >30 MIN Diagnoses Pneumonia J18.9 Laterality: bilateral Lung location: unspecified part of lung Pneumonia type: due to unspecified organism CHF (congestive heart failure) I50.9 Atrial fibrillation I48.91
[2024-12-29 13:40] VITALS: BP 121/71
--- NOTE | 2024-12-31 07:24 | Electrocardiogram Report ---
Test Reason : Blood Pressure : */* mmHG Vent. Rate : 75 BPM Atrial Rate : 75 BPM P-R Int : 198 ms QRS Dur : 144 ms QT Int : 414 ms P-R-T Axes : 54 9 47 degrees QTcB Int : 462 ms Normal sinus rhythm with sinus arrhythmia Right bundle branch block Abnormal ECG When compared with ECG of 04-May-2019 08:06, No significant change was found Confirmed by Cesar Herron ([id number]) on 12/31/2024 7:24:17 AM Referred By: Confirmed By: Cesar Herron
== END 2024-12-29 13:51 | disposition home or self-care (01) | DRG 194 ==
LOC: SUATTDRO → ED 13:39 → 2W 15:29 → SUATTDRO 15:29 → 2W 16:15